=== PATIENT | male | born 1970 | race Caucasian/White ===

== ENCOUNTER → 2019-10-03 | Outpatient (CLI) | payer BC, OTHER ==
[~2019-10-03] MED LIST: ALLEGRA-D 24 H1 EACH PO; ATORVASTATIN CA20 MG PO; BENICAR40 MG PO; BUPROPION HCL100 MG PO; CRESTOR10 MG PO; FEXOFENADINE-P1 EACH PO; FLAGYL250 MG PO; FLONASE ALLERG9.9 ML; FUROSEMIDE40 MG PO; HYDROCHLOROTHIA25 MG PO; LANSOPRAZOLE30 MG PO; LEVAQUIN500 MG PO; LINZESS290 MCG PO; LOSARTAN POTASS25 MG PO; METFORMIN HCL500 MG PO; PANTOPRAZOLE SO40 MG PO; SINGULAIR10 MG PO; SUDAFED 12 HOU120 MG PO; TRAMADOL HCL100 M1 PO; VYTORIN 10-401 EACH PO
== END ==
LOC: LAB 14:00 → EDSTATUS 10-06 14:00
PROVIDERS: ATTEND Internal Medicine Gastroenterology
DX: Z01.818 Encounter for other preprocedural examination (principal); R10.32 Left lower quadrant pain; K59.04 Chronic idiopathic constipation; Z11.59 Encounter for screening for other viral diseases
CPT/HCPCS: U0002